=== PATIENT | female | born 1945 | race Caucasian/White ===

== ENCOUNTER → 2020-03-29 | Outpatient (CLI) | payer MEDICARE, OTHER ==
[~2020-03-29] MED LIST: ASPIRIN EC81 MG PO; BRILINTA 90 MG90 MG PO; COREG3.125 MG PO; NITROGLYCERIN0.4 MG SL; NORVASC5 MG PO; PRAVASTATIN SOD20 MG PO; PROTONIX 40 MG40 M1 PO; VITAMIN B-121000 MC3 PO; VITAMIN D21250 MCG PO; ZYRTEC10 MG PO
[2020-03-29 10:30] LABS: HEMOGLOBIN 12.8 gm/dl (12.3-15.3); RED BLOOD COUNT 4.32 M/UL (4.00-5.10); WHITE BLOOD COUNT 7.5 K/UL (4.5-11.0)
[2020-03-29 11:18] LABS: BUN/CREATININE RATIO 14 (0-10)
== END ==
LOC: LAB 09:03
PROVIDERS: Internal Medicine Interventional Cardiology
DX: Z53.8 Procedure and treatment not carried out for other reasons (principal)
CPT/HCPCS: 36415; 80048; 85025; 85610; 85730; 93005

== ENCOUNTER 2020-03-30 07:48 | Outpatient (CLI) | payer MEDICARE, OTHER ==
[~2020-03-30] VITALS: Ht 152.4 cm; Wt 40.8 kg
[~2020-03-30 07:48] MED LIST changes: -NORVASC5 MG PO; -VITAMIN B-121000 MC3 PO; -VITAMIN D21250 MCG PO; -ZYRTEC10 MG PO
[2020-03-30] MEDS ORDERED: VITAMIN D21250 MCG PO (08:37)
[2020-03-30] MEDS ORDERED: VITAMIN B-121000 MC3 PO (08:37)
[2020-03-30] MEDS ORDERED: ZYRTEC10 MG PO (08:39)
[2020-03-30 12:24] LABS: WHITE BLOOD COUNT 5.7 K/UL (4.5-11.0)
[2020-03-30 12:26] LABS: HEMOGLOBIN 10.6 gm/dl (12.3-15.3); RED BLOOD COUNT 3.59 M/UL (4.00-5.10)
[2020-03-30 16:55] LABS: RED BLOOD COUNT 3.67 M/UL (4.00-5.10)
[2020-03-30 17:16] LABS: BUN/CREATININE RATIO 13 (0-10)
[2020-03-31 02:17] LABS: HEMOGLOBIN 10.7 gm/dl (12.3-15.3); RED BLOOD COUNT 3.58 M/UL (4.00-5.10); WHITE BLOOD COUNT 7.2 K/UL (4.5-11.0)
[2020-03-31 02:34] LABS: BUN/CREATININE RATIO 15 (0-10)
[2020-03-31] MEDS ORDERED: NORVASC5 MG PO (14:22)
[2020-03-31] MEDS ORDERED: COREG3.125 MG PO (14:41)
== END 2020-03-31 16:22 | disposition home or self-care (01) ==
LOC: CATH 07:48 → PROG CARE 10:35 → CATH 10:48 → PROG CARE 10:48 → CATH 10:48 → PROG CARE 03-31 16:22
PROVIDERS: Internal Medicine Interventional Cardiology
DX: I25.118 Atherosclerotic heart disease of native coronary artery with other forms of angina pectoris (principal); I25.84 Coronary atherosclerosis due to calcified coronary lesion; I10 Essential (primary) hypertension; I25.2 Old myocardial infarction; E78.5 Hyperlipidemia, unspecified; F17.200 Nicotine dependence, unspecified, uncomplicated; Z82.49 Family history of ischemic heart disease and other diseases of the circulatory system; Z20.822 Contact with and (suspected) exposure to COVID-19; Z79.899 Other long term (current) drug therapy; Z79.82 Long term (current) use of aspirin
CPT/HCPCS: 36415; 80048; 85025; 85027; 85347; 85610; 85730; 92920; 93005; 99152; 99153; C1725; C1769; C1874; C1887; J0360; J0461; J1170; J1644; J2250; J2405; J3010; J7030; J7040; Q9965